=== PATIENT | female | born 1975 | race American Indian/Alaskan Native ===

== ENCOUNTER 2017-09-28 06:09 | Day surgery (SDC) | payer BC ==
--- NOTE | 2017-09-22 13:06 | Anesthesia Consultation ---
Anesthesia Consult and Med Hx Date of service: 09/28/17 - Airway Anesthetic Teeth Evaluation: Good ROM Head & Neck: Adequate Mental/Hyoid Distance: Adequate Mallampati Class: Class II Intubation Access Assessment: Probably Good - Pulmonary Exam CTA: Yes - Cardiac Exam Cardiac Exam: RRR - Cardiovascular System Hx Hypertension: Yes (x 7mos) - Central Nervous System Hx Psychiatric Problems: No - Gastrointestinal Hx Gastroesophageal Reflux Disease: Yes (remote, not presently on meds) - Other Systems Hx Alcohol Use: Yes (occas) Hx Cancer: No
[2017-09-22 13:15] LABS: Basophils # (Auto) 0.1 K/mm3 (0.0-0.1); Basophils % (Auto) 1.4 % (0.0-1.8); Eosinophils # (Auto) 0.1 K/mm3 (0.0-0.4); Hematocrit 35.1 % (30.3-42.9); Hemoglobin 11.6 gm/dl (10.1-14.3); Lymphocytes # (Auto) 2.4 K/mm3 (1.2-5.4); Lymphocytes % (Auto) 35.3 % (13.4-35.0); Mean Corpuscular HGB Conc 33 % (30-34); Mean Corpuscular Hemoglobin 27 pg (28-32); Mean Corpuscular Volume 81 fl (79-97); Monocytes # (Auto) 0.5 K/mm3 (0.0-0.8); Monocytes % (Auto) 6.8 % (0.0-7.3); Platelet Count 331 K/mm3 (140-440); Red Blood Count 4.35 M/mm3 (3.65-5.03)
[2017-09-22 13:39] LABS: BUN/Creatinine Ratio 17; Blood Urea Nitrogen 10 mg/dL (7-17); Calcium 9.1 mg/dL (8.4-10.2); Hemolysis Index 3
--- NOTE | 2017-09-27 19:11 | History and Physical Report ---
History of Present Illness Date of examination: 09/22/17 Chief complaint: Menorrhagia and sterilization History of present illness: Past History : 3 Term Births: 2 Living Children: 2 Elect. 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[employer] History Operations: Negative Past Surgical History Abnormal PAP: positive Infection History Hx of STD: None Active Medications (reviewed today): IBUPROFEN 800 MG ORAL TABLET (IBUPROFEN) 1 po TID (PRN) HYDROCHLOROTHIAZIDE 12.5 MG ORAL CAPSULE (HYDROCHLOROTHIAZIDE) Current Allergies (reviewed today): CODEINE (Critical) Past Medical History: Reviewed history from 05/03/2017 and no changes required: Hypertension Past Surgical History: Reviewed history from 05/16/2012 and no changes required: Negative Past Surgical History Family History Summary: Reviewed history and no changes required: 09/27/2017 Other family member - Has No Family History of Biliary Tract Cancer - Entered On : 06/13/2017 Other family member - Has No Family History of Breast Cancer - Entered On: 2017 Other family member - Has No Family History of Brain Cancer - Entered On: 2017 Other family member - Has No Family History of Colon Cancer - Entered On: 2017 Other family member - Has No Family History of Spontaneous DVT-PE - Entered On: 06/13/2017 Other family member - Has No Family History of Kidney/Urinary Tract Cancer - Entered On: 06/13/2017 Other family member - Has No Family History of Ovarvian Cancer - Entered On: Other family member - Has No Family History of Pancreatic Cancer - Entered On: Other family member - Has No Family History of Stomach Cancer - Entered On: 06/13 Other family member - Has No Family History of Small Bowel Cancer - Entered On: 06/13/2017 Other family member - Has No Family History of Uterine Cancer - Entered On: 06/13 General Comments - FH: No Family History of Breast Cancer No Family History of Colon Cancer No Family History of Ovarvian Cancer No Family History of DVT/PE on OCP Social History: Reviewed history from 05/03/2017 and no changes required: Patient is Smoking History: Patient has never smoked. Previous Tobacco Use: Signed On - 05/03/2017 Smoked Tobacco Use: Never smoker Drug use: no Previous Alcohol Use: Signed On - 05/03/2017 Alcohol use: yes Drinks per day: social Exercise: no Mammogram History: Date of Last Mammogram: 04/22/2012 PAP Smear History: Date of Last PAP Smear: 12/30/2016 Review of Systems General Denies fever, chills, sweats, anorexia, fatigue, weakness, malaise, weight loss and sleep disorder. Denies vaginal discharge, incontinence, dysuria, hematuria, urinary frequency, amenorrhea, menorrhagia, abnormal vaginal bleeding, pelvic pain, genital sores, decreased libido, painful periods, painful sex, urinary urgency, hot flashes, vaginal dryness, vaginal itching and vaginal odor. CV Denies chest pains, palpitations, syncope, dyspnea on exertion, orthopnea, PND and peripheral edema. Resp Denies cough, dyspnea at rest, excessive sputum, hemoptysis, wheezing and pleurisy. GI Denies nausea, vomiting, diarrhea, constipation, change in bowel habits, abdominal pain, melena, hematochezia, jaundice, gas/bloating, indigestion/ heartburn, dysphagia and odynophagia. Endo Denies cold intolerance, heat intolerance, polydipsia, polyphagia, polyuria and unusual weight change. Breast Denies left breast lump, right breast lump, nipple discharge, bloody discharge from nipple, breast pain, abnormal mammogram and breast enlargement. MS Denies back pain, joint pain, joint swelling, muscle cramps, muscle weakness, stiffness, arthritis, sciatica, restless legs, leg pain at night and leg pain with exertion. Derm Denies rash, itching, dryness and suspicious lesions. Neuro Denies paralysis, paresthesias, headache, seizures, tremors, vertigo, transient blindness, frequent falls, frequent headaches and difficulty walking. Psych Denies depression, anxiety, irritability and mood swings. Eyes Denies blurring, diplopia, irritation, discharge, vision loss, eye pain and photophobia. ENT Denies earache, ear discharge, tinnitus, decreased hearing, nasal congestion, nosebleeds, sore throat and hoarseness. Allergy Denies urticaria, allergic rash, hay fever and recurrent infections. Heme Denies abnormal bruising, bleeding and enlarged lymph nodes. Physical Exam Appearance: well developed, well nourished, no acute distress Other Exams Lungs: no rales, rhonchi, or wheezes Heart: S1, S2, no murmur, rub, or gallop Abdomen: soft, non-tender, no masses, Skin: no ulcers, xanthomas Extremities: normal alignment, no joint enlargement, crepitus, masses or tenderness; normal tone and strength Genitourinary Exam Vulva: normal, no lesions or discharge Urethral meatus: normal size and location, no lesions or discharge Urethra: no discharge Bladder: no cystocele Vagina: normal appearance, no discharge, lesions. No evidence of cystocele or rectocele. Cervix: normal appearance, no lesions, no discharge Uterus: normal position, midline, mobile Adnexa: no masses or tenderness Impression & Recommendations: Problem # 1: Excessive and frequent menstruation with irregular cycle (ICD- 626.6) ([id number]) Diagnosis explained to patient . Questions answered. Discussed with patient various medical and surgical therapies common for treatment: Hormonal/medical therapy,endometrial ablation or hysterectomy. She desires to proceed with endometrial ablation Consent reviewed and signed . Possible laparoscopy or laparotomy explained to patient. The risks and alternatives for this surgery were reviewed with the patient. She was informed of possible bleeding, infection, injury to bowel, bladder, ureters or other adjacent organs. The patient was instructed/informed the following: The normal length of hospital stay for this procedure. Nothing to eat or drink after midnight the evening prior to surgery. Clear liquids the day before surgery. Fleets enema the day prior to surgery. Pre-op instruction sheets given. Wound care instructions given. Infection precautions reviewed, patient to call for any signs or symptoms of infection. The usual discomforts associated with this procedure were detailed. Proper use of pain medicines was reviewed. Patient was given ample opportunity to have all her questions answered before signing informed consent. Problem # 2: Sterilization (ICD-V25.2) ([id number]) Risks of regret emphasized. Permanent and irreversible condition explained to patient. Pt verbalized understanding. Consent reviewed and signed. Pre- operative instructions sheets given. The risks and alternatives to this surgery were reviewed with the patient. Infection precautions reviewed, pt to call for any signs or symptoms of infection. Patient given ample opportunity to have all her questions answered before signing informed consent. Patient informed of possible bleeding. 1%failure rate emphasized Medications Added to Medication List This Visit: 1) Ibuprofen 800 Mg Oral Tablet (Ibuprofen) .... 1 po tid (prn) Medications and Allergies Allergies Allergy/AdvReac Type Severity Reaction Status Date / Time codeine Allergy SOB, Verified 09/22/17 10:04 itching Home Medications Medication Instructions Recorded Confirmed Last Taken Type Hydrochlorothiazide 12.5 mg PO DAILY 09/22/17 09/22/17 Unknown History Active Meds: Active Medications Lactated Ringer's (Lactated Ringers) 1,000 mls @ 100 mls/hr IV DIRECT STEVEN Lactated Ringer's (Lactated Ringers) 1,000 mls @ 75 mls/hr IV DIRECT STEVEN Cefazolin Sodium (Ancef/Sterile Water 2 Gm/20 Ml) 2 gm in 20 mls @ 80 mls/hr IV PREOP NR; Protocol Midazolam HCl (Versed) 2 mg IV PREOP NR Stop: 09/28/17 23:59 Exam Vital Signs Temp Pulse Resp BP 99.4 F 72 18 140/90 09/22/17 16:32 09/22/17 16:32 09/22/17 16:32 09/22/17 16:32 Results - Labs 09/22/17 12:30 09/22/17 12:30 Assessment and Plan - Patient Problems (1) Menorrhagia Status: Chronic (2) Sterilization Status: Acute
[~2017-09-28 06:09] MED LIST: ANCEF/STERILE WATER 2 GM/20 ML 2 GM/20 ML SYRINGE IV NR; LACTATED RINGERS 1,000 ML IV SCH; PEPCID PO NR; VERSED IV NR
[2017-09-28] MEDS ORDERED: NACL BACTERIOSTATIC INFILTRATI ONE (08:46)
[2017-09-28 09:14] LABS: Hematocrit 36.7 % (30.3-42.9)
[2017-09-28] MEDS ORDERED: DECADRON ONE (09:41)
[2017-09-28] MEDS ORDERED: DIPRIVAN 10 MG/ML IV ONE (09:41)
[2017-09-28] MEDS ORDERED: ZOFRAN ONE (09:41)
[2017-09-28] MEDS ORDERED: ZEMURON IV ONE (09:41)
[2017-09-28] MEDS ORDERED: DILAUDID ONE (09:41)
[2017-09-28] MEDS ORDERED: XYLOCAINE MPF 2% ONE (09:41)
[2017-09-28] MEDS ORDERED: DILAUDID IV PRN ×2 (10:05→12:41)
[2017-09-28] MEDS ORDERED: ZOFRAN IV PRN ×2 (10:05→12:41)
[2017-09-28] MEDS ORDERED: MARCAINE 0.5% 30 ML INFILTRATI ONE (10:23)
[2017-09-28] MEDS ORDERED: MARCAINE 0.5% INFILTRATI ONE (11:30)
[2017-09-28] MEDS ORDERED: NACL 0.9% IR ONE ×2 (11:30)
[2017-09-28] MEDS ORDERED: TORADOL IV PRN (12:41)
--- NOTE | 2017-09-28 12:42 | Anesthesia Consultation ---
Anesthesia Consult and Med Hx Date of service: 09/28/17 - Airway Anesthetic Teeth Evaluation: Good ROM Head & Neck: Adequate Mental/Hyoid Distance: Adequate Mallampati Class: Class I Intubation Access Assessment: Good - Pulmonary Exam CTA: Yes - Cardiac Exam Cardiac Exam: RRR - Pre-Operative Health Status ASA Pre-Surgery Classification: ASA2 Proposed Anesthetic Plan: General - Cardiovascular System Hx Hypertension: Yes (x 7mos) - Central Nervous System Hx Psychiatric Problems: No - Gastrointestinal Hx Gastroesophageal Reflux Disease: Yes (remote, not presently on meds) - Other Systems Hx Alcohol Use: Yes (occas) Hx Cancer: No
--- NOTE | 2017-09-28 12:42 | Anesthesia Day of Surgery ---
Anesthesia Day of Surgery - Day of Surgery Patient Examined: Yes Patient H&P Reviewed: Yes Patient is NPO: Yes
--- NOTE | 2017-09-28 13:07 | Post Operative Note ---
Pre-op diagnosis: Menorrhagia, sterilization Post-op diagnosis: same (with a large (R) complex ovarian cyst) Procedure: h'scopy D&C, Endometrial ablation, (B) salpingectomy with (R) oophorectomy Anesthesia: LAYLA Surgeon: XIOMARA GIBSON Estimated blood loss: minimal Pathology: list (both fallopian tubes, endometrial tissue, right ovary) Specimen disposition: to lab Condition: stable Disposition: PACU
--- NOTE | 2017-09-28 13:11 | Discharge Summary ---
Providers - Providers Date of discharge: 09/28/17 Attending physician: XIOMARA GIBSON Primary care physician: TILE SORTER Hospitalization Condition: Good Disposition: DC-01 TO HOME OR SELFCARE - Discharge Diagnoses (1) Menorrhagia Status: Resolved (2) Sterilization Status: Acute (3) Right ovarian cyst Status: Acute Core Measure Documentation - Palliative Care Palliative Care/ Comfort Measures: Not Applicable - Core Measures Any of the following diagnoses?: none Exam - Constitutional Vitals: Temp Pulse Resp BP Pulse Ox 99.2 F 78 20 126/72 100 09/28/17 09:43 09/28/17 09:45 09/28/17 09:43 09/28/17 09:43 09/28/17 09:45 General appearance: Present: no acute distress - Respiratory Respiratory effort: normal - Cardiovascular Rhythm: regular Plan Activity: other (No sex) Weight Bearing Status: Full Weight Bearing Diet: regular Wound: open to air, keep clean and dry Special Instructions: no heavy lifting (>25#) Follow up with: PRIMARY CAREMD [Primary Care Provider] - 7 Days XIOMARA GIBSON MD [Staff Physician] - (As scheduled)
[2017-09-28 14:00] VITALS: BP 108/52
--- NOTE | 2017-09-28 18:28 | Operative Report ---
Operative Report Operative Report: Date: 09/28/2017 Preoperative diagnosis: 1. Menorrhagia 2. Desires sterilization Postoperative diagnosis: 1. Menorrhagia 2. Desires sterilization 3. Large right complex ovarian cyst Procedure: 1. Cervical dilation 2. Diagnostic hysteroscopy 3. Uterine curettage 4. Endometrial ablation using the NovaSure device 5. Laparoscopic bilateral salpingectomy for sterilization 6. Laparoscopic right oophorectomy Surgeon: Keri Villarreal MD Recovery Collector: [] Anesthesiologist: Parker Frazier M.D. Anesthesia: Gen. endotracheal anesthesia EBL: Minimal Findings: Uterine cavity length: 5.5 cm Uterine cavity width: 4.7 cm Ablation wattage: [id number] Duration: 41 seconds Distention medium: Saline Fluid deficit: 0 mL Procedure: After risks, benefits, complications, consequences and alternatives for this procedure were explained, and patient voiced her understanding and her desire to proceed, she is taken to the OR and placed in the supine position. General anesthesia was induced. She was placed in the dorsolithotomy position. Exam under anesthesia was unremarkable. She was then prepped and draped in usual sterile fashion. Timeout was performed. The bladder was drained approximately 100 mL's of clear yellow urine. A operative speculum was introduced was introduced into the vagina. The anterior lip of the cervix was grasped with single-tooth tenaculum and the uterus was sounded to 8 cm. The cervix was progressively dilated to allow the diagnostic hysteroscope.The cavity appeared to be grossly normal. Uterine curettage was performed. Then the uterine cavity length was determined using the SoundSure device. The NovaSure device was then set to 5.5 cm. The array was deployed to ensure adequate release. The device was introduced into the uterus and the array was released.. Uterine cavity width was determined to be 4.7 cm. Uterine integrity was confirmed. Ablation was performed. The procedure was completed at 41 seconds. The device was removed. The hysteroscope was reintroduced. Ablation of all surfaces was noted. Hemostasis was noted. The procedure was ended. A StartSpanish uterine manipulator was introduced into the uterus. The tenaculum and speculum were then removed. Sterile gloves were placed and attention was turned to the abdomen. An supraumbilical incision was made and a 5 mm Optiview trocar with scope and camera attached were placed through the incision. The abdomen was entered under direct visualization. The abdomen was then insufflated. No bowel, bladder, ureteral, or major vessel injury was noted. She was then placed in steep Trendelenburg position. The above findings were noted. An additional 5 mm trocar was placed through a suprapubic midline incision made approximately 2 cm superior to the symphysis pubis. A 5 mm trocar was introduced under direct visualization. No bowel, bladder or ureteral or major vascular injury was noted. The uterus was elevated, using the 5 mm [place] LigaSure device bilateral salpingectomy was performed. Each tube was removed through the suprapubic trocar. Attention was turned to the adnexa where hemostasis was noted. Again no bowel, bladder or ureteral or major vascular injury was noted. The large right complex-appearing ovarian cyst was noted. There was no normal- appearing ovarian tissue visualized. Due to the size and the apparent complexity of the cyst the decision was made to proceed with oophorectomy. An incision was made in the right midclavicular lower abdominal region. An 8 mm bladless was trocar was introduced under direct visualization. No bowel, bladder, ureteral, or major vessel injury was noted. The uterus was elevated and using the LigaSure device the infundibulopelvic ligament was clamped, cauterized and incised. The ovary was released. The midline suprapubic 5mm site was extended to allow placement of a 10/12 trocar. The ovary was then placed in an Endo Catch bag was introduced through the suprapubic trocar. The dark brown viscous fluid in the ovary was aspirated with the laparoscopic needle into a syringe and sent to pathology as cytology for evaluation. The remainder of the fluid was aspirated using the [id number] irrigation/aspiration device. Once the ovary was collapsed appropriately it was removed through the suprapubic incision with the bag intact. The pelvis was irrigated and hemostasis was noted. Again no obvious evidence of bowel, bladder, ureteral or vascular injury. At this point the procedure was ended. Patient was taken out of Trendelenburg position. The abdomen was desufflated. The trochars were removed. The incisions were reapproximated using 4-0 Vicryl in a subcuticular manner. The incisions were then infused with half percent Marcaine without epinephrine. Then attention was turned to the vagina where the uterine manipulator was removed. No bleeding was noted from the vagina. Counts were correct 3 patient tolerated procedure well was taken to recovery in stable condition
== END 2017-09-28 14:51 | disposition home or self-care (01) ==
LOC: OR 06:09
PROVIDERS: ATTEND Obstetrics & Gynecology
DX: Z30.2 Encounter for sterilization (principal); N83.201 Unspecified ovarian cyst, right side; I10 Essential (primary) hypertension; K21.9 Gastro-esophageal reflux disease without esophagitis; Z88.5 Allergy status to narcotic agent; Z98.890 Other specified postprocedural states
CPT/HCPCS: 36415; 58563; 58671; 80048; 81025; 85014; 85018; 85025; 86850; 86900; 86901; 88112; 88302; 88305; A4217; C1765; J0690; J1100; J1170; J1885; J2250; J2405; J2704; J7120